=== PATIENT | male | born 1975 | race Caucasian/White ===

== ENCOUNTER → 2018-02-05 08:19 | Outpatient (CLI) | payer OTHER, SELFPAY ==
--- NOTE | 2018-02-05 08:30 | US_ITS ---
STUDY: SCROTUM ULTRASOUND REASON FOR EXAM: Male, 42 years old. Right testicular pain. TECHNIQUE: Ultrasound evaluation of the scrotum was performed with color Doppler and static jameson-scale imaging. COMPARISON: None. FINDINGS: RIGHT TESTICLE INTRATESTICULAR: There is a normal size of the right testicle. The right testicle measures 5 x 3.6 x 2.7 cm. cm. There is a homogenous echotexture. There is normal arterial and normal venous vascularity. There is no demonstrated right testicular mass or cyst. EXTRATESTICULAR: The epididymis is normal in size. The epididymis head measures 1 x 1 x 0.5 cm. There is normal vascularity of the epididymis. There is a 3 mm epididymal head cyst. There is a small hydrocele. There is no demonstrated varicocele. There is no demonstrated extratesticular mass or cyst. LEFT TESTICLE INTRATESTICULAR: There is a normal size of the left testicle. The left testicle measures 4.7 x 3.3 x 2.7 cm. There is a homogenous echotexture. There is normal arterial and normal venous vascularity. There is no demonstrated left testicular mass or cyst. EXTRATESTICULAR: The epididymis is normal in size. The epididymis head measures 1.6 x 1.2 x 0.9 cm. There is normal vascularity of the epididymis. There is no demonstrated epididymal cystic structure. There is there is a small hydrocele. There is no demonstrated varicocele. There is no demonstrated extratesticular mass or cyst. US/Testicular with Arterial Flow IMPRESSION: 1. Normal bilateral testicles. 2. Right epididymal head cyst. 3. Small bilateral hydroceles. Electronically Signed: Alphonso Clifford DO at 18:02 EDT Tel [phone], Service support ,
== END ==
PROVIDERS: Visit Provider Nurse Practitioner Adult Health
DX: N50.9 Disorder of male genital organs, unspecified (principal); N50.811 Right testicular pain
CPT/HCPCS: 76870; 93976

== ENCOUNTER 2021-09-23 07:55 | Day surgery (SDC) | payer BC, SELFPAY ==
[2021-09-23] VITALS (7 sets, daily range): BP systolic 113–140; BP diastolic 68–91; PULSE 58–80; RESP 16; TEMP 35.9–36.2; O2SAT 99–100; BMI 29.1
[2021-09-23] MEDS: Lactated Ringers 1,000 ML 100 ML IV (08:32)
--- NOTE | 2021-09-23 09:27 | HP.PCM_ITS ---
History and Physical Date of Admission: 09/23/21 Date of Service: 08/03/21 MR#:[id number]: STEPHANIE TREVINORep #:[id number] Provider:Dr. Cleve Gupta MDAge/Sex: 46/M [facility] Vital Signs 08/03/21 09:22 Height 5 ft 9 in Weight: 206 lb BMI 30.4 BP 130/87 H Blood Pressure Location Rt brachial Position Sitting Respiration 16 Intake Visit Reasons: CSCOPE, FAMILY HISTORY Chief Complaint: c-scope/egd Metal Neutralizer Required: No Is patient in pain?: No Allergies No Known Allergies Allergy (Unverified 08/03/21 09:23) Medications L.acidoph, paracasei,B. lactis 10 billion cell capsule cell PO 08/03/21 [History Confirmed 08/03/21] antiarthritic combination no.2 900 mg tablet mg PO 08/03/21 [History Confirmed 08/03/21] loratadine 10 mg tablet 10 mg PO DAILY 08/03/21 [History Confirmed 08/03/21] FOR[facility], [facility] Medical History (Updated 08/03/21 @ 10:[address] Cleve Gupta MD) Bilateral headaches Surgical History History of tonsillectomy and adenoidectomy Family History (Updated 08/03/21 @ 09:28 by Areli Caldera) Mother Breast cancer Diabetes Seizures Thyroid disorder cancer Sister Colon cancer Father Celiac disease Cancer bladder CVA (cerebral vascular accident) Thyroid disorder Other Heart disease Social History Smoking Status: Never smoker alcohol intake: never substance use type: does not use what type of physical activity do you participate in: walking, running and aerobics HPI HPI HPI: STEPHANIE TREVINO, is a 46 M who presents to the office today for need to schedule screening colonoscopy secondary to age/family history. He states that his sister was just diagnosed with rectal cancer following symptoms of bloating and abnormal bowel habits in May 2021. She is currently 45 years old and she was advised to have any first-degree relatives screened. Mr. Trevino is referred for surgical consultation from Dr. Hall. Patient has not had prior colonoscopy. Patient has no personal history of diverticulitis, inflammatory bowel disease, or diverticulitis. They describe their bowel habits as normal/regular and do not have issues with constipation or diarrhea. They have approximately 2-3 stools per day without significant straining and do not notice any bleeding. They do not regularly take fiber supplements but doing a balanced diet with lots of fruits and vegetables. Beyond the new history found with the patient's sister, the patient has no other family history of colon cancer. The patient's weight is stable. Lastly from a gastrointestinal systems perspective, patient is being evaluated for possible celiac disease. This was diagnosed in the patient's father. ROS General General: No weight change, appetite, fatigue, colon cancer, breast cancer or weakness HEENT HEENT: Yes eye injury and eye surgery; No difficulty swallowing, swollen glands or hoarseness Endo Endocrine: No thyroid disease, diabetes mellitus, thyroid cancer, Hair loss, heat intolerance or cold intolerance Skin Skin: No rash or changing moles Breast Breast: No left breast lump, right breast lump, nipple discharge, breast pain, abnormal mammogram, abnormal US or breast enlargement Musc Musculoskeletal: Yes back problems; No arthritis, rheumatoid arthritis, gout or joint pain Cardio Cardiovascular: No murmur, pacemaker, heart disease, atrial fibrillation, high blood pressure, heart attack, heart stent, palpitations, shortness of breat with exertion or chest pain Psych Psychiatric: No depression, anxiety or hearing voices Resp Respiratory: No shortness of breath, No sleep apnea, No cough, No COPD, No asthma, No emphysema and No wheezing Gastro Gastrointestinal: No abdominal pain, No nausea or vomiting, No diarrhea, No constipation, No blood in stool, No acid reflux, No hemorrhoids, No ulcers, No gallbladder problem and No black,tarry stools Tk Hematologic: No blood thinners, No blood disorders, No bleeding, No anemia and No blood clots Neuro Neurologic: No system reviewed and no additional complaints, except as documented, No as per HPI, No abnormal gait, No abnormal hearing, No abnormal movements, No abnormal speech, No behavioral changes, No burning sensations, No confusion, No convulsions, No disequilibrium, No dizziness, No localized weakness, No frequent falls, No headache(s), No lack of coordination, No loss of vision, No memory loss, No numbness, No other visual disturbances, No radicular pain, No restless legs, No sensory deficit, No syncope, No tingling, No tremor(s), No weakness and No other Exam Const General: cooperative, healthy appearing, comfortable, no acute distress, well developed and well groomed Resp Effort & Inspection: normal respiratory effort Auscultation: clear to auscultation bilaterally, no rales, no rhonchi and no wheezes Cardio Rate: regular rate Rhythm: regular rhythm Heart Sounds: S1 normal and S2 normal GI Inspection: non-distended and no scars Palpation: soft, hernia umbilical (Small, subcentimeter fascial defect without incarceration) and nontender Assessment and Plan Assessment and Plan (1) Family hx of colon cancer requiring screening colonoscopy: Status: Acute Comment: Patient with sister (who is 16 months older) with newly diagnosed rectal cancer?presents himself for screening colonoscopy. No GI complaints himself. Given this history, and the fact that he is also almost 47 a colonoscopy is certainly appropriate. We will plan for a mutually agreeable date in the near future. Plan - Dr. Cleve Gupta MD: Plan will be to complete colonoscopy on September 23, 2021 under local MAC. Pre- procedure prep discussed and paper instructions provided. Patient is also made aware that he will need to have a reach lift truck driver with him the day of the procedure. Plan Details Goals & Barriers: Goals Improve ROM Decrease pain Decrease spasm Coding Level of Care Code Off vis,new,level 3 Diagnoses Family hx of colon cancer requiring screening colonoscopy Z80.0 I have re-examined the patient. There are no clinical changes since date of exam. Patient states that he completed his bowel prep successfully and his output has been clear. Plan to proceed with colonoscopy under local MAC given patient's newly?appreciated family history of colorectal cancer in sister.
--- NOTE | 2021-09-23 10:23 | OP.COLON_ITS ---
Patient Name: Nathan Contrears Procedure Date: 09/23/2021 9:36 AM Date of : 1975 Age: 46 Procedure: Colonoscopy Indications: Screening in patient at increased risk: Colorectal cancer in sister before age 60 Providers: Cleve Gupta MD Medicines: See the Anesthesia note for documentation of the administered medications Patient Profile: Refer to note in patient chart for documentation of history and physical. Last Colonoscopy: none. The patient's first colonoscopy is today. Complications: No immediate complications. Procedure: Pre-Anesthesia Assessment: - The anesthesia plan was to use moderate sedation/analgesia (conscious sedation). - The heart rate, respiratory rate, oxygen saturations, blood pressure, adequacy of pulmonary ventilation, and response to care were monitored throughout the procedure. After I obtained informed consent, the scope was passed under direct vision. Throughout the procedure, the patient's blood pressure, pulse, and oxygen saturations were monitored continuously. The Colonoscope was introduced through the anus and advanced to the terminal ileum. The colonoscopy was somewhat difficult due to poor bowel prep. Successful completion of the procedure was aided by lavage. The patient tolerated the procedure well. Scope In: 9:46:59 AM Scope Withdrawal Time 0 hours 22 minutes 41 seconds Scope Out: 10:17:29 AM Total Procedure Duration Time 0 hours 30 minutes 30 seconds Findings: The exam was otherwise without abnormality on direct and retroflexion views. Impression: - The examination was otherwise normal on direct and retroflexion views. - No specimens collected. Recommendation: - Discharge patient to home (via wheelchair). - Resume regular diet today. - Continue present medications. - Repeat colonoscopy in 5 years for screening purposes. Procedure Code(s): --- Professional --- G0105, Colorectal cancer screening; colonoscopy on individual at high risk Diagnosis Code(s): --- Professional --- Z80.0, Family history of malignant neoplasm of digestive organs CPT copyright 2017 [employer]. All rights reserved. The codes documented in this report are preliminary and upon insurance account manager review may be revised to meet current compliance requirements. Cleve Gupta MD 09/23/2021 10:23:00 AM This report has been signed electronically. Number of Addenda: 0 Note Initiated On: 09/23/2021 9:36 AM
--- NOTE | 2021-09-23 10:24 | OP.CCLET_ITS ---
09/23/2021 Rosa Hall [place] [id number] [address] Re : Colonoscopy procedure for Nathan Contreras Dear Dr. Hall This procedure was performed on August. My impressions and recommendations are as follows: Impressions : - The examination was otherwise normal on direct and retroflexion views. - No specimens collected. Recommendations : - Discharge patient to home (via wheelchair). - Resume regular diet today. - Continue present medications. - Repeat colonoscopy in 5 years for screening purposes. My findings are described in the full procedure note, which is enclosed. If I can be of further assistance, please feel free to contact me at Doctor phone number(s): , Work: . Sincerely, Cleve Gupta MD 09/23/2021 10:23:00 AM This report has been signed electronically.
== END 2021-09-23 11:13 ==
LOC: EN 07:58 → AC 07:58
PROVIDERS: PCP Family Medicine; Referring Provider Family Medicine; Visit Provider Surgery
PROC: 0DJD8ZZ Inspection of Lower Intestinal Tract, Via Natural or Artificial Opening Endoscopic (ICD-10-PCS; CPT 45378; principal; 2021-09-23 08:55)
DX: Z12.11 Encounter for screening for malignant neoplasm of colon (principal); Z80.0 Family history of malignant neoplasm of digestive organs
CPT/HCPCS: 45378; J7120; J2405

== ENCOUNTER → 2024-07-04 | Outpatient (CLI) | payer BC, SELFPAY ==
[2024-07-04 10:37] LABS: Cholesterol 183 mg/dL (200); High Density Lipoprotein 44 mg/dL; Triglycerides 154 mg/dL; Very Low Density Lipoprotein 31 mg/dL (5-40)
== END | disposition home or self-care (01) ==
LOC: MTLAB 09:04
PROVIDERS: PCP Family Medicine; Referring Provider Family Medicine; Visit Provider Family Medicine
DX: E78.5 Hyperlipidemia, unspecified (principal)
CPT/HCPCS: 36415; 80061